=== PATIENT | female | born 1980 | race Caucasian/White ===

== ENCOUNTER 2017-10-10 16:24 | Inpatient (IN) | payer OTHER ==
[2017-10-10 18:38] VITALS: BP 120/70; PULSE 94; TEMP 97.7; BMI 22.8
--- NOTE | 2017-10-10 20:51 | HP ---
COWS - Scale Resting Pulse: 1= MT 81-100 Sweatin=Flushed/Facial Moisture Restless Observation: 5= Unable to Sit Still Pupil Size: 1= Pupils >than Normal Bone or Joint Aches: 4=Acute Joint/Muscle Pain Runny Nose/ Eye Tearin= None GI Upset > 30mins: 3= Vomiting/Diarrhea Tremor Observation: 0= None Yawning Observation: 0= None Anxiety or Irritability: 4=Extreme Anxiety Goose Flesh Skin: 0=Smooth Skin COWS Score: 20 CIWA Score - CIWA Score Nausea/Vomitin Muscle Tremors: None Anxiety: 4-Mod. Anxious/Guarded Agitation: 4-Moderately Restless Paroxysmal Sweats: 3 Orientation: 1-Uncertain about Date Tacttile Disturbances: 0-None Auditory Disturbances: 0-None Visual Disturbances: 0-None Headache: 2-Mild CIWA-Ar Total Score: 17 Admission ROS S - HPI Chief Complaint: C/O WITHDRAWAL SX'S. SEEKING DETOX FOR ALCOHOL AND HEROIN Allergies/Adverse Reactions: Allergies Allergy/AdvReac Type Severity Reaction Status Date / Time Penicillins Allergy Severe anaphylacti Verified 10/10/17 21:14 c History of Present Illness: 37 Y.O FEMALE WITH POLYSUBSTANCE ABUSE HERE FOR DETOX FROM ALCOHOL AND HEROIN. CLIENT IS KNOWN TO THIS PROGRAM. LAST HERE 2012 WHERE SHE WAS ADMINISTRATIVELY DC FOR SNEAKING IN DRUGS. BEHAVIOR WAS ADDRESSED CLIENT VERBALIZED UNDERSTANDING OF FOLLOWING FACILITY REGULATIONS. CLIENT WAS REFERRED BY A FRIEND. DENIES ANY SIGNIFICANT PERIOD OF CLEAN TIME. DENIES HX/O DRUG OVERDOSE, SI/HI, SEIZURE D/O, AVH. CLIENT REPORTS HX/O CUTTING SELF, LAST BEEN 8 YEARS AGO. PMHX: FIBROMALGIA, HEPC-NO TXMENT PSYCH: ADHD, ANXIETY, DEPRESSION Exam Limitations: No Limitations - Ebola screening Have you traveled outside of the country in the last 21 days: No (N) Have you had contact with anyone from an Ebola affected area: No Have you been sick,other than usual withdrawal symptoms: No Do you have a fever: No - Review of Systems Constitutional: Chills, Loss of Appetite, Malaise, Night Sweats, Changes in sleep, Unintentional Wgt. Loss EENT: reports: Dental Problems (UPPER DENTURES) Respiratory: reports: Other (HX/O ASTHMA) Cardiac: reports: Other (HEART MURMUR) GI: reports: Poor Appetite, Vomiting : reports: No Symptoms Reported Musculoskeletal: reports: Back Pain, Joint Pain Integumentary: reports: Other (LEFT NECK ABCESS X 1 WEEK) Neuro: reports: No Symptoms reported Endocrine: reports: No Symptoms Reported Hematology: reports: No Symptoms Reported Psychiatric: reports: Anxious, Depressed Other Systems: Reviewed and Negative Patient History - Patient Medical History Hx Anemia: No Hx Asthma: Yes Hx Chronic Obstructive Pulmonary Disease (COPD): No Hx Cancer: No Hx Cardiac Disorders: No Hx Congestive Heart Failure: No Hx Hypertension: No Hx Hypercholesterolemia: No Hx Pacemaker: No HX Cerebrovascular Accident: No Hx Seizures: Yes (ALCOHOL RELATED SEIZURE LAST 8 YEARS AGO) Hx Dementia: No Hx Diabetes: No Hx Gastrointestinal Disorders: No Hx Liver Disease: No Hx Genitourinary Disorders: No Hx Sexually Transmitted Disorders: No Hx Renal Disease (ESRD): No Hx Thyroid Disease: No Hx Human Immunodeficiency Virus (HIV): No Hx Hepatitis C: Yes (NOT TXMENT) Hx Depression: Yes Hx Suicide Attempt: Yes Hx Bipolar Disorder: Yes Hx Schizophrenia: No Other Medical History: FIBROMALGIA, ADHD - Patient Surgical History Past Surgical History: No - PPD History Previous Implant?: Yes Documented Results: Negative w/proof Implanted On Prior R Admission?: Yes Date: 11/07/12 PPD to be Administered?: Yes - Reproductive History Patient is a Female of Child Bearing Age (11 -55 yrs old): Yes Last Menstrual Period: 09/19/17 LMP comment: IRREG Patient : No ([facility] [place]) - Smoking Cessation Smoking history: Current every day smoker Have you smoked in the past 12 months: Yes Aproximately how many cigarettes per day: 30 Cigars Per Day: 0 Hx Chewing Tobacco Use: No Initiated information on smoking cessation: Yes 'Breaking Loose' booklet given: 10/10/17 - Substance & Tx. History Hx Alcohol Use: Yes Hx Substance Use: Yes Substance Use Type: Alcohol, Cocaine, Heroin, Marijuana Hx Substance Use Treatment: Yes ([facility]) - Substances Abused HEROIN Route: Injection Frequency: Daily Amount used: 10 BAGS Age of first use: 25 Date of Last Use: 10/10/17 VODKA/BEER Route: Oral Frequency: Daily Amount used: 1PINT/ 6-PACK Age of first use: 9 Date of Last Use: 10/10/17 COCAINE Route: Injection Frequency: 3-6 times per week Amount used: 1 GM Age of first use: 13 Date of Last Use: 10/08/17 THC Route: Smoking Frequency: 3-6 times per week Amount used: 1 BLUNT Age of first use: 9 Date of Last Use: 10/09/17 Family Disease History - Family Disease History Family Disease History: Other: Father (alcohol) Admission Physical Exam S - Vital Signs Vital Signs: Vital Signs - 24 hr 10/10/17 18:36 Temperature 97.7 F Pulse Rate 94 H Respiratory 18 Rate Blood Pressure 120/70 - Physical General Appearance: Yes: Appropriately Dressed, Alcohol on Breath, Sweating ( FLUSHED FACE), Anxious HEENTM: Yes: EOMI, Normocephalic, Normal Voice, PRATIK, Pharynx Normal, Other ( INFILTRATED INJECTION SITE NOTED TO LEFT NECK WARM TO TOUCH) Respiratory: Yes: Chest Non-Tender, Lungs Clear, Normal Breath Sounds, No Respiratory Distress, No Accessory Muscle Use Neck: Yes: Supple, Trachea in good position, Mass (LEFT NECK INFILTRATION FROM INJECTING REDNESS AND WARMTH) Breast: Yes: Breast Exam Deferred Cardiology: Yes: Regular Rhythm, S1, S2, Tachycardia Abdominal: Yes: Normal Bowel Sounds, Non Tender, Flat, Soft Genitourinary: Yes: Other (NO C/O) Back: Yes: Normal Inspection Musculoskeletal: Yes: full range of Motion, Gait Steady Extremities: Yes: Normal Capillary Refill, Normal Inspection, Normal Range of Motion, Non-Tender Neurological: Yes: sole layer II-XII NML intact, Fully Oriented, Alert, Motor Strength 5/5, Depressed Affect Integumentary: Yes: Warm, Erythema (LEFT NECK), Track Russell, Other (FLUSHING) Lymphatic: Yes: Within Normal Limits - Diagnostic (1) Alcohol dependence with uncomplicated withdrawal Current Visit: Yes Status: Acute (2) Opioid dependence with withdrawal Current Visit: Yes Status: Acute (3) Cannabis abuse, uncomplicated Current Visit: Yes Status: Chronic (4) Substance induced mood disorder Current Visit: Yes Status: Suspected (5) History of seizure Current Visit: Yes Status: Suspected (6) History of intentional self-harm Current Visit: Yes Status: Suspected Comment: 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 (7) IV drug abuse Current Visit: Yes Status: Acute (8) Cutaneous abscess of neck Current Visit: Yes Status: Acute (9) Asthma Current Visit: Yes Status: Chronic (10) Cocaine dependence Current Visit: Yes Status: Chronic (11) fibromyalgia Current Visit: Yes Status: Suspected Comment: REPORTED C/O Cleared for Admission [facility] - Detox or Rehab [facility] Level of Care: Medically Managed Detox Regimen/Protocol: Methadone/Librium Claeared for Rehab Admission: No S Breath Alcohol Content Breath Alcohol Content: 0.059 Urine Pregancy Test - Result Urine Test Results: Negative- NO Line Present Urine Drug Screen - Results Drug Screen Negative: No Urine Drug Screen Results: THC-Marijuana, ZEHRA-Cocaine, OPI-Opiates, OXY- Oxycodone
[2017-10-10] MEDS ORDERED: MAGNESIUM CITRATE 300 ML BOTTLE PO PRN (21:01)
[2017-10-10] MEDS ORDERED: IBUPROFEN 400 MG TABLET (FP) PO PRN (21:01)
[2017-10-10] MEDS ORDERED: NICOTINE POLACRILEX 4 MG GUM BC PRN (21:01)
[2017-10-10] MEDS ORDERED: LOPERAMIDE HCL 2 MG CAPSULE PO PRN (21:01)
[2017-10-10] MEDS ORDERED: MAG HYDROX/AL HYDROX/SIMETH 30 ML UNIT-DOSE CUP PO PRN (21:01)
[2017-10-10] MEDS ORDERED: P-EPHED 60MG/TRIPROLIDI 2.5MG TABLET PO PRN (21:01)
[2017-10-10] MEDS ORDERED: chlordiazePOXIDE HCL 25 MG CAPSULE PO PRN (21:01)
[2017-10-10] MEDS ORDERED: ACETAMINOPHEN 325 MG TABLET (FP) PO PRN (21:01)
[2017-10-10] MEDS ORDERED: MENTHOL/PHENOL 1 EACH UD MM PRN (21:01)
[2017-10-10] MEDS ORDERED: MAGNESIUM HYDROX 2400MG/30ML ORAL SUSPENSION 30 ML CUP PO PRN (21:01)
[2017-10-10] MEDS ORDERED: guaiFENesin/D-METHORPHAN HB 10 ML UNIT-DOSE CUPS PO PRN (21:01)
[2017-10-10] MEDS ORDERED: METHADONE HCL 10 MG TABLET (FOR DETOX USE ONLY) PO ONE ×2 (21:45→23:00)
[2017-10-10] MEDS ORDERED: SULFAMETHOXAZOLE/TRIMETHOPRIM 800MG/160MG D.S. TABLET PO SCH (22:00)
[2017-10-10] MEDS ORDERED: MELATONIN 5 MG TABLETS PO PRN (22:00)
[2017-10-10] MEDS ORDERED: CEPHALEXIN MONOHYDRATE 500 MG CAPSULE (UD) PO SCH (22:00)
[2017-10-10] MEDS ORDERED: THIAMINE HCL 100 MG TABLET (FP) PO SCH (22:00)
--- NOTE | 2017-10-10 22:15 | HP ---
Screened but not Admitted - Documentation of Visit Screened but not Admitted: No Left Prior to Completion of Assessment: No Insurance Authorization Denied: No Patient Does Not Meet Criteria for Admission: No Additional Information/Explanation: CLIENT ABORTED ADMISSION .
[2017-10-10] MEDS ORDERED: chlordiazePOXIDE HCL 25 MG CAPSULE PO SCH (23:00)
[2017-10-11] MEDS ORDERED: NICOTINE 21 MG/24 HOURS TOPICAL PATCH TD SCH (10:00)
[2017-10-11] MEDS ORDERED: PRENATAL VITAMINS W/ FOLIC ACID TABLET (FP) PO SCH (10:00)
[2017-10-11] MEDS ORDERED: METHADONE HCL 10 MG TABLET (FOR DETOX USE ONLY) PO SCH (10:00)
[2017-10-11] MEDS ORDERED: chlordiazePOXIDE HCL 25 MG CAPSULE PO SCH (23:00)
[2017-10-12] MEDS ORDERED: METHADONE HCL 5 MG TABLET (FOR DETOX USE ONLY) PO SCH (10:00)
[2017-10-12] MEDS ORDERED: chlordiazePOXIDE 5 MG CAPSULE PO SCH (23:00)
[2017-10-13] MEDS ORDERED: chlordiazePOXIDE HCL 10 MG CAPSULE PO SCH (23:00)
[2017-10-14] MEDS ORDERED: METHADONE HCL 10 MG TABLET (FOR DETOX USE ONLY) PO SCH (10:00)
[2017-10-15] MEDS ORDERED: METHADONE HCL 5 MG TABLET (FOR DETOX USE ONLY) PO SCH (06:00)
== END 2017-10-11 05:02 | disposition left against medical advice (07) | DRG 770 ==
LOC: YASAS 16:24 → Y6N 20:58
PROVIDERS: ADMIT Surgery; ATTEND Surgery
PROC: HZ2ZZZZ Detoxification Services for Substance Abuse Treatment (ICD-10-PCS; principal; 2017-10-10)
DX: F11.23 Opioid dependence with withdrawal (principal); F10.230 Alcohol dependence with withdrawal, uncomplicated; F14.20 Cocaine dependence, uncomplicated; F12.10 Cannabis abuse, uncomplicated; F17.210 Nicotine dependence, cigarettes, uncomplicated; F19.24 Other psychoactive substance dependence with psychoactive substance-induced mood disorder; J45.909 Unspecified asthma, uncomplicated; M79.7 Fibromyalgia; L02.11 Cutaneous abscess of neck; Z86.69 Personal history of other diseases of the nervous system and sense organs; Z88.0 Allergy status to penicillin; Z91.5 Personal history of self-harm